=== PATIENT | female | born 1970 | race Caucasian/White ===

== ENCOUNTER 2018-10-30 12:51 | Emergency (ER) | payer OTHER ==
[~2018-10-30] VITALS: Ht 170.2 cm; Wt 77.1 kg
[~2018-10-30 12:51] MED LIST: CARAFATE1 GM/10 ML PO; FLONASE2 SPRAY NS; LEVOTHYROXINE100 MCG PO; PROTONIX20 MG PO; ZYRTEC10 M3 PO
--- OUTSIDE RECORDS SUMMARY | 2018-10-30 12:54 | XMS ---
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 CARE PROVIDERS AVINASH COY Nurse Practitioner: Family 07/23/2015-Current PHONE: Unknown AVINASH HOYT Primary Care 07/23/2015-Current ZBIGNIEW PHONE: Unknown [facility] Care 07/23/2015-Current PHONE: [phone] [facility] has no Care Guidelines for this patient. E.D. VISIT COUNT (12 MO.) 1 LINDA Taylor TOTAL 1 NOTE: Visits indicate total known visits. ED/UCC VISIT TRACKING (12 MO.) 10/30/2018 12:51 [facility] [place] TYPE: Emergency COMPLAINT: - ABD PAIN,CONSTIPATION INPATIENT VISIT TRACKING (12 MO.) No inpatient visits to display in this time frame [email or web address]
[2018-10-30] MEDS ORDERED: REGLAN10 MG PO (17:49)
== END 2018-10-30 18:00 | disposition home or self-care (01) ==
LOC: ED 12:51
DX: R10.9 Unspecified abdominal pain (principal); K21.9 Gastro-esophageal reflux disease without esophagitis; F17.200 Nicotine dependence, unspecified, uncomplicated; Z79.899 Other long term (current) drug therapy
CPT/HCPCS: 74177; 80053; 81001; 83690; 84703; 85025; 96360; 96361; 99284-25; J7030; Q9967

== ENCOUNTER 2024-08-17 18:37 | Emergency (ER) | payer OTHER ==
[~2024-08-17] VITALS: Ht 170.2 cm; Wt 68.0 kg
[~2024-08-17 18:37] MED LIST changes: +REGLAN10 MG PO
[2024-08-17 20:18] LABS: BASOPHILS 0.5 % (0-2); EOSINOPHILS 0.5 % (0-6); HEMATOCRIT 40.3 % (35.0-50.0); HEMOGLOBIN 13.4 g/dL (12.0-18.0); LYMPHOCYTES 34.3 % (24-44); MCH 30.1 (27-36); MCHC 33.4 g/dl (30-36); MCV 90.2 fl (81-99); MONOCYTES 7.6 % (0-12); NEUTROPHILS 57.1 % (39-80); PLATELET COUNT 367 K/uL (140-440); RBC 4.47 M/ul (4.3-5.7); RDW 13.5 (10.5-15.0)
[2024-08-17 20:29] LABS: ALBUMIN 4.1 g/dL (3.4-5.0); ALBUMIN/GLOBULIN RATIO 1.21 (1.1-2.4); ANION GAP 14.6 (7-21); BILIRUBIN, TOTAL 0.4 ng/dL (0.2-1.0); BUN/CREATININE RATIO 11.36 (6.0-28.6); CALCIUM 9.2 mg/dL (8.5-10.1); CREATININE, SERUM 0.88 mg/dL (0.55-1.02); MAGNESIUM 1.9 mg/dL (1.8-2.4); POTASSIUM 3.6 mmol/L (3.5-5.1); PROTEIN, TOTAL 7.5 g/dL (6.4-8.2)
[2024-08-17] MEDS ORDERED: LORazepam 1 MG HOME.PACK PO ONE (21:00)
[2024-08-17 21:18] VITALS: BP 128/84
== END 2024-08-17 21:18 | disposition home or self-care (01) ==
LOC: ED 18:37
PROVIDERS: Family Medicine
DX: F43.9 Reaction to severe stress, unspecified (principal); F17.200 Nicotine dependence, unspecified, uncomplicated; Z79.890 Hormone replacement therapy; Z79.899 Other long term (current) drug therapy
CPT/HCPCS: 36415; 71045; 80053; 83735; 85025; 86140; 99283-25

== ENCOUNTER 2024-12-09 18:24 | Emergency (ER) | payer OTHER ==
[~2024-12-09] VITALS: Ht 170.2 cm; Wt 71.0 kg
[2024-12-09] MEDS ORDERED: FAMOTIDINE 20 MG/ 2 ML VIAL IV ONE (21:15)
[2024-12-09] MEDS ORDERED: ondansetron HCL 4 MG/2 ML VIAL IV ONE (21:15)
[2024-12-09 21:21] LABS: BILIRUBIN, URINE NEGATIVE (negative); BLOOD/HGB, URINE NEGATIVE (Negative); KETONE, URINE SMALL (Negative); LEUK ESTERASE, URINE NEGATIVE (negative); NITRITE, URINE NEGATIVE (negative); PH, URINE 5.5 (5-7)
[2024-12-09 21:34] LABS: BASOPHILS 0.3 % (0-2); EOSINOPHILS 0.4 % (0-6); HEMOGLOBIN 13.9 g/dL (12.0-18.0); MCH 30.3 (27-36); MCHC 34.9 g/dl (30-36); MCV 86.7 fl (81-99); MONOCYTES 8.8 % (0-12); NEUTROPHILS 56.5 % (39-80); PLATELET COUNT 341 K/uL (140-440); RBC 4.61 M/ul (4.3-5.7); RDW 13.5 (10.5-15.0)
[2024-12-09 21:54] LABS: ALBUMIN 4.3 g/dL (3.4-5.0); ALBUMIN/GLOBULIN RATIO 1.19 (1.1-2.4); ANION GAP 15.8 (7-21); BILIRUBIN, TOTAL 0.7 mg/dL (0.2-1.0); BUN/CREATININE RATIO 8.43 (6.0-28.6); CALCIUM 9.6 mg/dL (8.5-10.1); CREATININE, SERUM 0.83 mg/dL (0.55-1.02); POTASSIUM 3.8 mmol/L (3.5-5.1); PROTEIN, TOTAL 7.9 g/dL (6.4-8.2)
[2024-12-09 22:30] VITALS: BP 138/78
== END 2024-12-09 22:30 | disposition home or self-care (01) ==
LOC: ED 18:24
PROVIDERS: Internal Medicine
DX: K21.9 Gastro-esophageal reflux disease without esophagitis (principal); F17.200 Nicotine dependence, unspecified, uncomplicated
CPT/HCPCS: 36415; 76705; 80053; 81003; 83690; 84484; 85025; 96374; 96375; 99284-25; J2405